=== PATIENT | male | born 1995 | race Hispanic/Latino ===

== ENCOUNTER 2017-06-10 21:11 | Emergency (ER) | payer SELFPAY | END 2017-06-10 21:34 | disposition home or self-care (01) | LOC: EDH 21:11 | DX: Z04.1 Encounter for examination and observation following transport accident (principal); V49.49XA Driver injured in collision with other motor vehicles in traffic accident, initial encounter; Y93.89 Activity, other specified; Y92.89 Other specified places as the place of occurrence of the external cause; Y99.8 Other external cause status ==